=== PATIENT | male | born 1945 | race African-American/Black ===

== ENCOUNTER 2017-05-05 15:41 | Inpatient (IN) | payer MEDICARE, OTHER ==
[~2017-05-05] VITALS: Ht 177.8 cm; Wt 81.7 kg
[~2017-05-05 15:41] MED LIST: ACETAMINOPHEN325 M1 ORAL; ALLOPURINOL100 M1 ORAL; AMBIEN5 MG ORAL; AMOX TR-K CLV1 EAC2 ORAL; ASPIRIN81 MG ORAL; CLONAZEPAM2 MG PO; COLACE100 MG ORAL; CYCLOBENZAPRINE10 MG ORAL; FLONASE1 SPRAYS NASAL; HEPARIN SO5000 UNIT2 SUBQ; HYDROCODON-ACE1 EA16; IBUPROFEN800 M1 ORAL; KLONOPIN1 MG ORAL; LISINOPRIL10 MG ORAL; LORATADINE10 M2; METHADONE HCL10 MG ORAL; METHADONE HCL10 MG PO; PHENERGAN6.25 MG/5; SPIRIVA18 MCG INH; TAMSULOSIN HCL0.4 MG ORAL; TRAMADOL HCL50 MG; VITAMIN D250000 UNI1 ORAL
[2017-05-05 17:00] VITALS: BP 116/61
[2017-05-05 17:11] LABS: BASOPHILS % (AUTO) 1.1 % (0.0-2.0); EOSINOPHILS % (AUTO) 2.7 % (0.0-3.0); HEMATOCRIT 34.3 % (42.0-52.0); HEMOGLOBIN 10.9 G/DL (14.2-18.0); LYMPHOCYTES % (AUTO) 22.1 % (20.0-45.0); MEAN CORPUSCULAR VOLUME 95 FL (80-99); MONOCYTES % (AUTO) 7.4 % (1.0-10.0); NEUTROPHILS % (AUTO) 66.7 % (45.0-75.0); PLATELET COUNT 122 K/UL (150-450); RED BLOOD COUNT 3.63 M/UL (4.70-6.10); RED CELL DISTRIBUTION WIDTH 16.1 % (11.6-14.8); WHITE BLOOD COUNT 8.6 K/UL (4.8-10.8)
[2017-05-05 17:31] LABS: ALANINE AMINOTRANSFERASE 16 U/L (12-78); ALBUMIN 3.2 G/DL (3.4-5.0); ALBUMIN/GLOBULIN RATIO 0.7 (1.0-2.7); ALKALINE PHOSPHATASE 73 U/L (46-116); ANION GAP 8 mmol/L (5-15); ASPARTATE AMINO TRANSFERASE 12 U/L (15-37); BILIRUBIN,TOTAL 0.6 MG/DL (0.2-1.0); BLOOD UREA NITROGEN 74 mg/dL (7-18); CALCIUM 8.6 MG/DL (8.5-10.1); CARBON DIOXIDE 30 MMOL/L (21-32); CHLORIDE 96 MMOL/L (98-107); CREATININE 17.4 MG/DL (0.55-1.30); SODIUM 135 MMOL/L (136-145)
[2017-05-05] MEDS ORDERED: PRO-AMATINE5 M1 ORAL (17:51)
[2017-05-05] MEDS ORDERED: KLONOPIN1 MG ORAL (17:51)
[2017-05-05 18:00] VITALS: BP 133/51
[2017-05-05] MEDS ORDERED: Albuterol ud Inhalation HHN ONE (18:15)
[2017-05-05] MEDS ORDERED: Sodium Polystyrene Sulfonate 15gm Powder ORAL ONE (18:15)
[2017-05-05] MEDS ORDERED: Miralax 17gm pkt ORAL PRN (18:45)
[2017-05-05] MEDS ORDERED: Albuterol/Ipratropium 3ml neb HHN PRN (18:45)
[2017-05-05] MEDS ORDERED: Lidocaine 1% Plain 30 ml INJ ONE (18:49)
[2017-05-05] MEDS ORDERED: Lidocaine 1% 10mg/ml/Epi 0.005mg/ml 30ml vial INJ ONE (18:52)
[2017-05-05] MEDS ORDERED: Sodium Bicarbonate 50ml Carp IV ONE (19:00)
--- NOTE | 2017-05-05 19:20 | Operative Note - PDOC ---
Operative Note Operative Note Date of Operation/Procedure: May 05, 2017 Pre-op Diagnosis: hyperkalemia, need urgent dialysis Procedure: right femoral HD catheter insertion Post-op Diagnosis: same as pre-op Surgeon: luís Anesthesiologist: n/a Anesthesia: local Specimen: none Complications: none Condition: stable Fluids: n/a Estimated Blood Loss: minimal Drains: none Implant(s) used?: Yes - HD catheter Indications for Procedure 72 year old male with renal failure on dialysis. Has been receiving HD through left arm AV graft for some time now but unfortunately graft seems to have malfunctioned and was unable to receive dialysis. Was sent to ED from dialysis center for evaluation. Noted to have hyperkalemia and requiring urgent HD. Surgery called for HD catheter placement as patient had no other access and graft salvage not available at this time. Risks, benefits, and alternatives discussed with patient in detail at bedside. Patient consented to procedure. Description of Procedure The patient was lying in the supine position. All persons involved were shielded with hairnets, facemasks and sterile gowns. With sterile-gloved hands the right femoral area was thoroughly sponged with chlorhexidine and allowed to dry. The area was draped with the large disposable sterile field provided in the kit. The skin and subcutaneous tissues superficial to the right femoral vein was anesthetized with 5 mL of 1% lidocaine. The femoral artery was palpated and avoided. A finder needle was advanced at a 45-degree angle toward the inguinal ligament until the syringe was seen to fill with blood. The needle was then held in place while the guide wire was advanced. The needle was then removed. A skin dilator was advanced over the guidewire and removed, then the HD catheter was advanced over the guide wire into proper position. The guide wire was removed and discarded. The ports were aspirated which showed good blood return indicating proper position into the vein and then carefully flushed with normal saline. The catheter was stabilized and sutured to the skin with 2-0 silk at 2 anchor ports. A sterile bio-occlusive dressing was placed over the catheter, including the insertion site. The patient tolerated the procedure well. João Leo May 05, 2017 19:20
[2017-05-05 19:37] LABS: ANION GAP 9 mmol/L (5-15); BLOOD UREA NITROGEN 75 mg/dL (7-18); CALCIUM 8.2 MG/DL (8.5-10.1); CARBON DIOXIDE 30 MMOL/L (21-32); CHLORIDE 97 MMOL/L (98-107); CREATININE 17.6 MG/DL (0.55-1.30); SODIUM 136 MMOL/L (136-145)
[2017-05-05 19:47] LABS: POTASSIUM 7.4 MMOL/L (3.5-5.1)
[2017-05-05] MEDS: Heparin 5000 units/ml inj SUBQ SCH (19:49)
[2017-05-05 20:00] VITALS: BP 112/64
--- NOTE | 2017-05-05 21:26 | Emergency Room Report ---
History of Present Illness General Chief Complaint: General Complaint Source: Patient, Medical Record Present Illness HPI Patient presents emergency department today complaining of missing dialysis. Patient has a history renal fair and is currently on dialysis. Patient had a Anjum catheter for which she was receiving dialysis. About a week ago the Anjum catheter was discontinued. Patient had AV fistula was created. Unfortunately the AV fistula has not been working for over a week. Therefore patient has not received dialysis patient came in for further evaluation. Patient denies any chest pain or shortness breath. Denies any nausea vomiting diarrhea chills symptoms noted to be moderate as patient is fairly weak.No other modifying factors. No other associated signs and symptoms. No other complaints were noted. Allergies: Coded Allergies: PENICILLINS (Verified Allergy, Unknown, 05/05/17) Patient History Past Medical History: CAD, renal disease, dialysis Past Surgical History: other - left AV fistula Social History: Denies: smoking, alcohol use, drug use Reviewed Nursing Documentation: PMH: Agreed, PSxH: Agreed Nursing Documentation-PMH Past Medical History: No History, Except For Hx Cardiac Problems: Yes Hx Gastrointestinal Problems: No Hx Dialysis: Yes - T, TH, Sat Hx Neurological Problems: Yes Hx Seizures: Yes Hx Weakness: Yes Review of Systems All Other Systems: negative except mentioned in HPI Physical Exam Vital Signs Date Time Temp Pulse Resp B/P (MAP) Pulse Ox O2 Delivery O2 Flow Rate FiO2 05/05/17 15:57 98.2 86 18 110/59 96 Room Air 98.2 05/05/17 20:18 21 Sp02 EP Interpretation: reviewed, normal General Appearance: alert, mild distress Head: normocephalic, atraumatic Eyes: bilateral eye normal inspection ENT: normal ENT inspection, hearing grossly normal, normal voice Neck: normal inspection, full range of motion, supple, no bony tend Respiratory: normal inspection, lungs clear, normal breath sounds, no respiratory distress, no retraction, no wheezing Cardiovascular #1: regular rate, rhythm, no edema Gastrointestinal: normal inspection, normal bowel sounds, non tender, soft, no guarding, no hernia Genitourinary: no CVA tenderness Musculoskeletal: normal inspection, back normal, normal range of motion, other - left AV fistula intact but no thrill Neurologic: normal inspection, alert, responsive, speech normal Psychiatric: normal inspection, judgement/insight normal, mood/affect normal Skin: normal inspection, normal color, no rash Procedures Critical Care Time Critical Care Time Patient had a critical medical condition which untreated could potentially result in life or limb threatening injury. Total critical care time excluding procedures was approximately 45 minutes. Medical Decision Making Diagnostic Impression: Primary Impression: Hyperkalemia Additional Impression: Renal failure ER Course Patient presents emergency department today with with the inability getting dialysis. Differential considerations include acute electrolyte abnormality, fluid overload, hyperkalemia just name a few.Given the severity of the patient' s presentation I felt this is a highly complex patient. This patient required extensive workup. Patient's EKG shows prominent T waves this is concerning for hyperkalemia. Patient's blood work did show a significant elevated potassium 8. Patient was given Kayexalate insulin and bicarbonate as well as nebulizer treatment. Patient was sent for emergent dialysis. Case was discussed with Dr. Falcon. Dr. Ramos was also notified. Anjum catheter was placed by general surgery. Patient will receive dialysis later today. Patient will be admitted to [facility] for further treatment. Labs Test 05/05/17 16:45 05/05/17 19:01 White Blood Count 8.6 K/UL (4.8-10.8) Red Blood Count 3.63 M/UL (4.70-6.10) Hemoglobin 10.9 G/DL (14.2-18.0) Hematocrit 34.3 % (42.0-52.0) Mean Corpuscular Volume 95 FL (80-99) Mean Corpuscular Hemoglobin 30.1 PG (27.0-31.0) Mean Corpuscular Hemoglobin Concent 31.8 G/DL (32.0-36.0) Red Cell Distribution Width 16.1 % (11.6-14.8) Platelet Count 122 K/UL (150-450) Mean Platelet Volume 9.0 FL (6.5-10.1) Neutrophils (%) (Auto) 66.7 % (45.0-75.0) Lymphocytes (%) (Auto) 22.1 % (20.0-45.0) Monocytes (%) (Auto) 7.4 % (1.0-10.0) Eosinophils (%) (Auto) 2.7 % (0.0-3.0) Basophils (%) (Auto) 1.1 % (0.0-2.0) Prothrombin Time 10.9 SEC (9.30-11.50) Prothromb Time International Ratio 1.0 (0.9-1.1) Activated Partial Thromboplast Time 31 SEC (23-33) Sodium Level 135 MMOL/L (136-145) 136 MMOL/L (136-145) Potassium Level 8.0 MMOL/L (3.5-5.1) 7.4 MMOL/L (3.5-5.1) Chloride Level 96 MMOL/L (98-107) 97 MMOL/L (98-107) Carbon Dioxide Level 30 MMOL/L (21-32) 30 MMOL/L (21-32) Anion Gap 8 mmol/L (5-15) 9 mmol/L (5-15) Blood Urea Nitrogen 74 mg/dL (7-18) 75 mg/dL (7-18) Creatinine 17.4 MG/DL (0.55-1.30) 17.6 MG/DL (0.55-1.30) Estimat Glomerular Filtration Rate 3.3 mL/min (>60) 3.3 mL/min (>60) Glucose Level 62 MG/DL (74-106) 60 MG/DL (74-106) Calcium Level 8.6 MG/DL (8.5-10.1) 8.2 MG/DL (8.5-10.1) Total Bilirubin 0.6 MG/DL (0.2-1.0) Aspartate Amino Transf (AST/SGOT) 12 U/L (15-37) Alanine Aminotransferase (ALT/SGPT) 16 U/L (12-78) Alkaline Phosphatase 73 U/L (46-116) Total Protein 7.8 G/DL (6.4-8.2) Albumin 3.2 G/DL (3.4-5.0) Globulin 4.6 g/dL Albumin/Globulin Ratio 0.7 (1.0-2.7) Troponin I 0.010 ng/mL (0.000-0.056) EKG Diagnostic Results Rate: normal Rhythm: NSR ST Segments: other - T wave prominence Rhythm Strip Diag. Results EP Interpretation: yes Rate: 70s Rhythm: NSR, no PVC's, no ectopy Last Vital Signs Date Time Temp Pulse Resp B/P (MAP) Pulse Ox O2 Delivery O2 Flow Rate FiO2 05/05/17 20:18 77 14 95 Room Air 21 05/05/17 18:00 98.9 133/51 98.9 Status: improved Disposition: ADMITTED INPATIENT Condition: Serious Referrals: [facility],REFERRING (PCP) CARIN SIGALA M.D. May 05, 2017 21:26
[2017-05-05 21:45] VITALS: BP 125/64
[2017-05-05 21:48] VITALS: BP 120/74
[2017-05-05 22:00] VITALS: BP 124/65
[2017-05-05] MEDS ORDERED: CALCIUM ACETAT667 MG PO (23:23)
[2017-05-06] VITALS (7 sets, daily range): BP systolic 89–154; BP diastolic 49–88
[2017-05-06 04:14] LABS: EOSINOPHILS % (AUTO) 2.7 % (0.0-3.0); HEMATOCRIT 29.3 % (42.0-52.0); HEMOGLOBIN 9.5 G/DL (14.2-18.0); LYMPHOCYTES % (AUTO) 26.4 % (20.0-45.0); MEAN CORPUSCULAR VOLUME 95 FL (80-99); MONOCYTES % (AUTO) 6.9 % (1.0-10.0); PLATELET COUNT 107 K/UL (150-450); RED BLOOD COUNT 3.08 M/UL (4.70-6.10); RED CELL DISTRIBUTION WIDTH 16.2 % (11.6-14.8); WHITE BLOOD COUNT 6.9 K/UL (4.8-10.8)
[2017-05-06 05:13] LABS: ALBUMIN 2.8 G/DL (3.4-5.0); ANION GAP 9 mmol/L (5-15); BLOOD UREA NITROGEN 59 mg/dL (7-18); CALCIUM 7.5 MG/DL (8.5-10.1); CARBON DIOXIDE 33 MMOL/L (21-32); CHLORIDE 98 MMOL/L (98-107); CREATININE 14.1 MG/DL (0.55-1.30); PHOSPHORUS 5.8 MG/DL (2.5-4.9); POTASSIUM 5.4 MMOL/L (3.5-5.1); SODIUM 140 MMOL/L (136-145)
--- NOTE | 2017-05-06 07:24 | History and Physical ---
History of Present Illness General Reason for Hospitalization: General Complaint Present Illness HPI 72 y/old male with MH of ESRSD, on HD, seizure disorder, hx of IVDU, on maintenance methadone therapy, presented with report of missing dialysis. Patient had a Anjum catheter , and about a week ago the Anjum catheter was discontinued. Patient had AV fistula which was earlier created. However, AV fistula had not been working for over a week. Patient came in for further evaluation. Patient denied any chest pain or shortness breath. Denied any nausea vomiting diarrhea chills Upon evaluation in ED stable VS K-8.0 ECG with peaked T waves troponin negative BUN-74 and creatinine-17 c/w known hx of ESRD hyperkalemia was treated and patient was admitted for further management Allergies: Coded Allergies: PENICILLINS (Verified Allergy, Unknown, 05/05/17) Medication History Scheduled Aspirin* (Aspirin*), 81 MG ORAL DAILY, (Reported) Clonazepam (Clonazepam), 2 MG PO BEDTIME, (Reported) Methadone Hcl* (Methadone*), 55 MG PO DAILY Methadone Hcl* (Methadone*), 65 MG ORAL DAILY Midodrine (Midodrine HCl), 5 MG ORAL DAILY, (Reported) Scheduled PRN Fluticasone Propionate (Fluticasone Propionate), 1 SPR NASAL BID PRN Miscellaneous Medications Calcium Acetate (Calcium Acetate), 667 MG PO, (Reported) Discontinued Medications Acetaminophen* (Acetaminophen 325MG Tablet*), 650 MG ORAL Q4H PRN for fever Discontinued Reason: Pt stopped taking med Allopurinol* (Allopurinol*), 300 MG ORAL DAILY Discontinued Reason: Pt stopped taking med Amoxicillin/Potassium Clav 875-125 Mg Tab* (Amox Tr-K Clv 875-125 Mg Tab*), 875 MG ORAL EVERY 12 HOURS Discontinued Reason: Pt stopped taking med Cyclobenzaprine Hcl* (Flexeril*), 10 MG ORAL TID PRN Discontinued Reason: Pt stopped taking med Docusate Sodium* (Colace*), 100 MG ORAL TWICE A DAY Discontinued Reason: Pt stopped taking med Ergocalciferol (Vitamin D2)* (Vitamin D*), ORAL ONCE A WEEK, (Reported) Discontinued Reason: Pt stopped taking med Heparin Sod (Porcine) (Heparin Sodium*), 5,000 UNITS SUBQ EVERY 12 HOURS Discontinued Reason: Pt stopped taking med Hydrocodone/Acetaminophen 7.5-325* (Hydrocodon-Acetaminoph 7.5-325*), (Reported) Discontinued Reason: Pt stopped taking med Loratadine (Loratadine), (Reported) Discontinued Reason: MD discontinued med Promethazine/Dextromethorphan (Promethazine-Dm Syrup), (Reported) Discontinued Reason: Pt stopped taking med Tamsulosin Hcl (Tamsulosin Hcl*), 0.4 MG ORAL BEDTIME, (Reported) Discontinued Reason: Pt stopped taking med Tiotropium Waller* (Spiriva*), 1 PUFF INH DAILY, (Reported) Discontinued Reason: Pt stopped taking med Tramadol Hcl* (Ultram*), (Reported) Discontinued Reason: Pt stopped taking med Zolpidem Tartrate* (Ambien*), 10 MG ORAL HSPRN PRN for Insomnia Discontinued Reason: Pt stopped taking med Patient History Healthcare decision maker Resuscitation status Full Code Advanced Directive on File Past Medical/Surgical History Past Medical/Surgical History: (1) Renal failure (2) Anemia (3) Methadone maintenance therapy patient (4) History of intravenous drug use in remission (5) Thrombocythemia (6) Acute kidney injury (7) Hypercapnia Review of Systems Constitutional: Reports: weakness Eye: Reports: no symptoms ENT: Reports: no symptoms Respiratory: Reports: no symptoms Cardiovascular: Reports: no symptoms Gastrointestinal: Reports: no symptoms Genitourinary: Reports: see HPI Musculoskeletal: Reports: no symptoms Skin: Reports: no symptoms Psychiatric: Reports: no symptoms Neurological: Reports: no symptoms Endocrine: Reports: no symptoms Hematologic/Lymphatic: Reports: no symptoms Physical Exam General Appearance: no apparent distress, alert Lines, tubes and drains: peripheral HEENT: normocephalic, atraumatic, anicteric, mucous membranes moist Neck: supple Respiratory/Chest: lungs clear, no respiratory distress, no accessory muscle use Cardiovascular/Chest: normal rate, regular rhythm, no JVD, other - LUE AV fistula no thrill/bruit; R femoral nontunneled HD catheter Abdomen: normal bowel sounds, non tender, soft Extremities: non-tender, no calf tenderness Skin Exam: warm/dry Neurologic: no motor/sensory deficits, alert, oriented x 3, responsive Musculoskeletal: normal muscle bulk Last 24 Hour Vital Signs Date Time Temp Pulse Resp B/P (MAP) Pulse Ox O2 Delivery O2 Flow Rate FiO2 05/06/17 04:00 98.5 73 20 144/86 95 Room Air 98.5 05/06/17 04:00 79 05/06/17 01:10 98.0 88 20 100/63 Room Air 98.0 05/06/17 01:10 Room Air 05/06/17 00:00 97.5 83 20 101/58 94 Room Air 97.5 05/06/17 00:00 74 05/05/17 22:42 78 05/05/17 22:00 Room Air 05/05/17 22:00 97.8 76 20 124/65 Room Air 97.8 05/05/17 21:48 97.7 81 20 120/74 94 Room Air 97.7 05/05/17 21:45 81 19 125/64 97 Room Air 05/05/17 21:45 98.9 81 19 125/64 97 Room Air 21 98.9 05/05/17 20:36 75 14 99 Room Air 21 05/05/17 20:18 77 14 95 Room Air 21 05/05/17 20:18 77 14 Room Air 21 05/05/17 20:18 21 05/05/17 20:00 81 12 112/64 96 Room Air 05/05/17 18:00 98.9 80 14 133/51 95 Room Air 98.9 05/05/17 17:00 98.9 85 14 116/61 95 Room Air 98.9 05/05/17 15:57 98.2 86 18 110/59 96 Room Air 98.2 Intake and Output 05/05/17 05/06/17 19:00 07:00 Intake Total 236 ml Output Total 2000 ml Balance -1764 ml Intake Oral 236 ml Output Hemodialysis UF 2000 ml Laboratory Tests Test 05/05/17 16:45 05/05/17 19:01 05/06/17 03:10 White Blood Count 8.6 K/UL (4.8-10.8) 6.9 K/UL (4.8-10.8) Red Blood Count 3.63 M/UL (4.70-6.10) L 3.08 M/UL (4.70-6.10) L Hemoglobin 10.9 G/DL (14.2-18.0) L 9.5 G/DL (14.2-18.0) L Hematocrit 34.3 % (42.0-52.0) L 29.3 % (42.0-52.0) L Mean Corpuscular Volume 95 FL (80-99) 95 FL (80-99) Mean Corpuscular Hemoglobin 30.1 PG (27.0-31.0) 30.7 PG (27.0-31.0) Mean Corpuscular Hemoglobin Concent 31.8 G/DL (32.0-36.0) L 32.3 G/DL (32.0-36.0) Red Cell Distribution Width 16.1 % (11.6-14.8) H 16.2 % (11.6-14.8) H Platelet Count 122 K/UL (150-450) L 107 K/UL (150-450) L Mean Platelet Volume 9.0 FL (6.5-10.1) 7.6 FL (6.5-10.1) Neutrophils (%) (Auto) 66.7 % (45.0-75.0) 63.0 % (45.0-75.0) Lymphocytes (%) (Auto) 22.1 % (20.0-45.0) 26.4 % (20.0-45.0) Monocytes (%) (Auto) 7.4 % (1.0-10.0) 6.9 % (1.0-10.0) Eosinophils (%) (Auto) 2.7 % (0.0-3.0) 2.7 % (0.0-3.0) Basophils (%) (Auto) 1.1 % (0.0-2.0) 1.0 % (0.0-2.0) Prothrombin Time 10.9 SEC (9.30-11.50) Prothromb Time International Ratio 1.0 (0.9-1.1) Activated Partial Thromboplast Time 31 SEC (23-33) Sodium Level 135 MMOL/L (136-145) L 136 MMOL/L (136-145) 140 MMOL/L (136-145) Potassium Level 8.0 MMOL/L (3.5-5.1) *H 7.4 MMOL/L (3.5-5.1) *H 5.4 MMOL/L (3.5-5.1) H Chloride Level 96 MMOL/L (98-107) L 97 MMOL/L (98-107) L 98 MMOL/L (98-107) Carbon Dioxide Level 30 MMOL/L (21-32) 30 MMOL/L (21-32) 33 MMOL/L (21-32) H Anion Gap 8 mmol/L (5-15) 9 mmol/L (5-15) 9 mmol/L (5-15) Blood Urea Nitrogen 74 mg/dL (7-18) H 75 mg/dL (7-18) H 59 mg/dL (7-18) H Creatinine 17.4 MG/DL (0.55-1.30) H 17.6 MG/DL (0.55-1.30) H 14.1 MG/DL (0.55-1.30) H Estimat Glomerular Filtration Rate 3.3 mL/min (>60) 3.3 mL/min (>60) 4.2 mL/min (>60) Glucose Level 62 MG/DL (74-106) L 60 MG/DL (74-106) L 72 MG/DL (74-106) L Calcium Level 8.6 MG/DL (8.5-10.1) 8.2 MG/DL (8.5-10.1) L 7.5 MG/DL (8.5-10.1) L Total Bilirubin 0.6 MG/DL (0.2-1.0) Aspartate Amino Transf (AST/SGOT) 12 U/L (15-37) L Alanine Aminotransferase (ALT/SGPT) 16 U/L (12-78) Alkaline Phosphatase 73 U/L (46-116) Total Protein 7.8 G/DL (6.4-8.2) Albumin 3.2 G/DL (3.4-5.0) L 2.8 G/DL (3.4-5.0) L Globulin 4.6 g/dL Albumin/Globulin Ratio 0.7 (1.0-2.7) L Troponin I 0.010 ng/mL (0.000-0.056) 0.034 ng/mL (0.000-0.056) Phosphorus Level 5.8 MG/DL (2.5-4.9) H Height (Feet): 5 Height (Inches): 10.00 Weight (Pounds): 190 Medications Current Medications Medications (Trade) Dose Ordered Sig/Alondra Route PRN Reason Start Time Stop Time Status Last Admin Dose Admin Acetaminophen (Tylenol) 650 mg Q4H PRN ORAL Fever 05/05/17 18:45 06/04/17 18:44 Albuterol/ Ipratropium (Albuterol/ Ipratropium) 3 ml EVERY 4 HOURS PRN HHN Shortness of Breath 05/05/17 18:45 05/10/17 18:44 Dextrose (Dextrose 50%) STAT PRN IV Hypoglycemia 05/05/17 18:45 06/04/17 18:44 Heparin Sodium (Porcine) (Heparin 5000 units/ml) 5,000 units EVERY 12 HOURS SUBQ 05/05/17 21:00 06/04/17 20:59 05/05/17 19:49 Methadone HCl (Methadone HCl) 55 mg DAILY ORAL 05/06/17 09:00 05/13/17 08:59 UNV Ondansetron HCl (Zofran) 4 mg Q6H PRN IVP Nausea & Vomiting 05/05/17 18:45 06/04/17 18:44 Polyethylene Glycol (Miralax) 17 gm DAILYPRN PRN ORAL Constipation 05/05/17 18:45 06/04/17 18:44 Temazepam (Restoril) 15 mg HSPRN PRN ORAL Insomnia 05/05/17 18:45 05/12/17 18:44 Assessment/Plan Assessment/Plan ASSESSMENT Acute severe hyperkalemia missed HD ESRD, ON HD hypotension PLAN OF CARE [facility] s/p insertion of HD catheter by surgeon- temporary R femoral s/p emergent HD K-5.5, additional Kayexalate this am nephro follows discussed with nephro keep till Monday for declotting of AV fistula by IR monitor renal parameters, correct lytes as needed O2 pulm toilet prn ECHO troponin x 2 negative Bowel regimen a/emetic prn DVT prophylaxis case discussed and evaluated by supervising physician Keyur Francisco)Jane NP May 06, 2017 07:24
[2017-05-06] MEDS: Heparin 5000 units/ml inj SUBQ SCH ×3 (09:00→21:00)
--- NOTE | 2017-05-06 12:01 | Consultation ---
Consult Note Consult Note asked to eval for HD management to ER last night missed HD due to clotted graft had K of 8 a right femoral cath was put in place [facility] Assessment/Plan Acute severe hyperkalemia missed HD ESRD, ON HD Plan: monitor lab vascular surgical eval per orders JORGE LEVI May 06, 2017 12:01
--- NOTE | 2017-05-06 12:11 | Consultation ---
History of Present Illness General Date patient seen: May 05, 2017 Chief Complaint: General Complaint Reason for Consultation: hyperk, urgent dialysis Present Illness HPI late entry for consultation seen on 05/05/2017 in PM. 72 year old male with history of renal failure on dialysis. Had prior left upper arm AV graft that was functional and being used. unfortunately graft clotted and had not received dialysis as scheduled. noted to have potassium of 8 and sent to ED for urgent evaluation. Surgery called for urgent HD catheter insertion so that patient can be dialyzed sharon. otherwise patient well and comfortable. Allergies: Coded Allergies: PENICILLINS (Verified Allergy, Unknown, 05/05/17) Medication History Scheduled Aspirin* (Aspirin*), 81 MG ORAL DAILY, (Reported) Clonazepam (Clonazepam), 2 MG PO BEDTIME, (Reported) Methadone Hcl* (Methadone*), 55 MG PO DAILY Methadone Hcl* (Methadone*), 65 MG ORAL DAILY Midodrine (Midodrine HCl), 5 MG ORAL DAILY, (Reported) Scheduled PRN Fluticasone Propionate (Fluticasone Propionate), 1 SPR NASAL BID PRN Miscellaneous Medications Calcium Acetate (Calcium Acetate), 667 MG PO, (Reported) Discontinued Medications Acetaminophen* (Acetaminophen 325MG Tablet*), 650 MG ORAL Q4H PRN for fever Discontinued Reason: Pt stopped taking med Allopurinol* (Allopurinol*), 300 MG ORAL DAILY Discontinued Reason: Pt stopped taking med Amoxicillin/Potassium Clav 875-125 Mg Tab* (Amox Tr-K Clv 875-125 Mg Tab*), 875 MG ORAL EVERY 12 HOURS Discontinued Reason: Pt stopped taking med Cyclobenzaprine Hcl* (Flexeril*), 10 MG ORAL TID PRN Discontinued Reason: Pt stopped taking med Docusate Sodium* (Colace*), 100 MG ORAL TWICE A DAY Discontinued Reason: Pt stopped taking med Ergocalciferol (Vitamin D2)* (Vitamin D*), ORAL ONCE A WEEK, (Reported) Discontinued Reason: Pt stopped taking med Heparin Sod (Porcine) (Heparin Sodium*), 5,000 UNITS SUBQ EVERY 12 HOURS Discontinued Reason: Pt stopped taking med Hydrocodone/Acetaminophen 7.5-325* (Hydrocodon-Acetaminoph 7.5-325*), (Reported) Discontinued Reason: Pt stopped taking med Loratadine (Loratadine), (Reported) Discontinued Reason: MD discontinued med Promethazine/Dextromethorphan (Promethazine-Dm Syrup), (Reported) Discontinued Reason: Pt stopped taking med Tamsulosin Hcl (Tamsulosin Hcl*), 0.4 MG ORAL BEDTIME, (Reported) Discontinued Reason: Pt stopped taking med Tiotropium [place]* (Spiriva*), 1 PUFF INH DAILY, (Reported) Discontinued Reason: Pt stopped taking med Tramadol Hcl* (Ultram*), (Reported) Discontinued Reason: Pt stopped taking med Zolpidem Tartrate* (Ambien*), 10 MG ORAL HSPRN PRN for Insomnia Discontinued Reason: Pt stopped taking med Patient History History Provided By: Patient, Medical Record, PMD Healthcare decision maker Resuscitation status Full Code Advanced Directive on File Past Medical/Surgical History Past Medical/Surgical History: (1) Humeral head fracture (2) Acetabular fracture (3) Multiple injuries due to trauma (4) Anemia (5) ATN (acute tubular necrosis) (6) Unable to ambulate (7) Acute on chronic renal failure (8) Hyperkalemia (9) Renal failure (10) Respiratory infection (11) Respiratory distress (12) Hypercapnia (13) Hypoxia (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 (16) Thrombocythemia (17) Acute kidney injury Review of Systems Constitutional: Denies: no symptoms, see HPI, chills, sweats, fever, malaise, weakness, other Eye: Denies: no symptoms, see HPI, eye pain, blurred vision, tearing, double vision, nose pain, nose congestion, acuity changes, discharge, other ENT: Denies: no symptoms, see HPI, ear pain, ear discharge, nose pain, nose congestion, throat pain, throat swelling, mouth pain, hearing loss, nasal discharge, other Respiratory: Denies: no symptoms, see HPI, cough, orthopnea, shortness of breath, stridor, wheezing, [place], sputum, other Cardiovascular: Denies: no symptoms, see HPI, chest pain, edema, palpitations, syncope, PND, other Gastrointestinal: Denies: no symptoms, see HPI, abdominal pain, constipation, diarrhea, nausea, vomiting, melena, hematemesis, other Genitourinary: Denies: no symptoms, see HPI, discharge, dysuria, frequency, hematuria, pain, retention, incontinence, urgency, vag bleed/dc, other Musculoskeletal: Denies: no symptoms, see HPI, back pain, gout, joint pain, joint swelling, muscle pain, muscle stiffness, other Skin: Denies: no symptoms, see HPI, rash, change in color, change in hair/nails , dryness, lesions, other Psychiatric: Denies: no symptoms, see HPI, prior hx, anxiety, depressed feelings, emotional problems, SI, HI, hallucinations, other Neurological: Denies: no symptoms, see HPI, headache, numbness, paresthesia, seizure, tingling, tremors, focal weakness, syncope, dizziness, other Endocrine: Denies: no symptoms, see HPI, excessive sweating, flushing, intolerance to temperature, increased thirst, increased urine, unexplained weight loss, other Hematologic/Lymphatic: Denies: no symptoms, see HPI, anemia, blood clots, easy bleeding, easy bruising, swollen glands, diathesis, other Physical Exam General Appearance: no apparent distress, alert Lines, tubes and drains: dialysis access HEENT: normocephalic, atraumatic, mucous membranes moist Neck: supple, normal inspection Respiratory/Chest: lungs clear, normal breath sounds, no respiratory distress, no accessory muscle use Cardiovascular/Chest: normal peripheral pulses, normal rate Abdomen: normal bowel sounds, non tender, soft, no organomegaly Extremities: normal range of motion Skin Exam: normal pigmentation, warm/dry Neurologic: alert, oriented x 3, responsive Last 24 Hour Vital Signs Date Time Temp Pulse Resp B/P (MAP) Pulse Ox O2 Delivery O2 Flow Rate FiO2 05/06/17 08:00 99.3 76 18 89/54 92 Room Air 99.3 05/06/17 08:00 78 05/06/17 07:05 76 15 Room Air 21 05/06/17 04:00 98.5 73 20 144/86 95 Room Air 98.5 05/06/17 04:00 79 05/06/17 01:10 98.0 88 20 100/63 Room Air 98.0 05/06/17 01:10 Room Air 05/06/17 00:00 97.5 83 20 101/58 94 Room Air 97.5 05/06/17 00:00 74 05/05/17 22:42 78 05/05/17 22:00 Room Air 05/05/17 22:00 97.8 76 20 124/65 Room Air 97.8 05/05/17 21:48 97.7 81 20 120/74 94 Room Air 97.7 05/05/17 21:45 81 19 125/64 97 Room Air 05/05/17 21:45 98.9 81 19 125/64 97 Room Air 21 98.9 05/05/17 20:36 75 14 99 Room Air 21 05/05/17 20:18 77 14 95 Room Air 21 05/05/17 20:18 77 14 Room Air 21 05/05/17 20:18 21 05/05/17 20:00 81 12 112/64 96 Room Air 05/05/17 18:00 98.9 80 14 133/51 95 Room Air 98.9 05/05/17 17:00 98.9 85 14 116/61 95 Room Air 98.9 05/05/17 15:57 98.2 86 18 110/59 96 Room Air 98.2 Intake and Output 05/05/17 05/06/17 19:00 07:00 Intake Total 236 ml Output Total 2000 ml Balance -1764 ml Intake Oral 236 ml Output Hemodialysis UF 2000 ml Laboratory Tests Test 05/05/17 16:45 05/05/17 19:01 05/06/17 03:10 White Blood Count 8.6 K/UL (4.8-10.8) 6.9 K/UL (4.8-10.8) Red Blood Count 3.63 M/UL (4.70-6.10) L 3.08 M/UL (4.70-6.10) L Hemoglobin 10.9 G/DL (14.2-18.0) L 9.5 G/DL (14.2-18.0) L Hematocrit 34.3 % (42.0-52.0) L 29.3 % (42.0-52.0) L Mean Corpuscular Volume 95 FL (80-99) 95 FL (80-99) Mean Corpuscular Hemoglobin 30.1 PG (27.0-31.0) 30.7 PG (27.0-31.0) Mean Corpuscular Hemoglobin Concent 31.8 G/DL (32.0-36.0) L 32.3 G/DL (32.0-36.0) Red Cell Distribution Width 16.1 % (11.6-14.8) H 16.2 % (11.6-14.8) H Platelet Count 122 K/UL (150-450) L 107 K/UL (150-450) L Mean Platelet Volume 9.0 FL (6.5-10.1) 7.6 FL (6.5-10.1) Neutrophils (%) (Auto) 66.7 % (45.0-75.0) 63.0 % (45.0-75.0) Lymphocytes (%) (Auto) 22.1 % (20.0-45.0) 26.4 % (20.0-45.0) Monocytes (%) (Auto) 7.4 % (1.0-10.0) 6.9 % (1.0-10.0) Eosinophils (%) (Auto) 2.7 % (0.0-3.0) 2.7 % (0.0-3.0) Basophils (%) (Auto) 1.1 % (0.0-2.0) 1.0 % (0.0-2.0) Prothrombin Time 10.9 SEC (9.30-11.50) Prothromb Time International Ratio 1.0 (0.9-1.1) Activated Partial Thromboplast Time 31 SEC (23-33) Sodium Level 135 MMOL/L (136-145) L 136 MMOL/L (136-145) 140 MMOL/L (136-145) Potassium Level 8.0 MMOL/L (3.5-5.1) *H 7.4 MMOL/L (3.5-5.1) *H 5.4 MMOL/L (3.5-5.1) H Chloride Level 96 MMOL/L (98-107) L 97 MMOL/L (98-107) L 98 MMOL/L (98-107) Carbon Dioxide Level 30 MMOL/L (21-32) 30 MMOL/L (21-32) 33 MMOL/L (21-32) H Anion Gap 8 mmol/L (5-15) 9 mmol/L (5-15) 9 mmol/L (5-15) Blood Urea Nitrogen 74 mg/dL (7-18) H 75 mg/dL (7-18) H 59 mg/dL (7-18) H Creatinine 17.4 MG/DL (0.55-1.30) H 17.6 MG/DL (0.55-1.30) H 14.1 MG/DL (0.55-1.30) H Estimat Glomerular Filtration Rate 3.3 mL/min (>60) 3.3 mL/min (>60) 4.2 mL/min (>60) Glucose Level 62 MG/DL (74-106) L 60 MG/DL (74-106) L 72 MG/DL (74-106) L Calcium Level 8.6 MG/DL (8.5-10.1) 8.2 MG/DL (8.5-10.1) L 7.5 MG/DL (8.5-10.1) L Total Bilirubin 0.6 MG/DL (0.2-1.0) Aspartate Amino Transf (AST/SGOT) 12 U/L (15-37) L Alanine Aminotransferase (ALT/SGPT) 16 U/L (12-78) Alkaline Phosphatase 73 U/L (46-116) Total Protein 7.8 G/DL (6.4-8.2) Albumin 3.2 G/DL (3.4-5.0) L 2.8 G/DL (3.4-5.0) L Globulin 4.6 g/dL Albumin/Globulin Ratio 0.7 (1.0-2.7) L Troponin I 0.010 ng/mL (0.000-0.056) 0.034 ng/mL (0.000-0.056) Phosphorus Level 5.8 MG/DL (2.5-4.9) H Height (Feet): 5 Height (Inches): 10.00 Weight (Pounds): 190 Medications Current Medications Medications (Trade) Dose Ordered Sig/Alondra Route PRN Reason Start Time Stop Time Status Last Admin Dose Admin Acetaminophen (Tylenol) 650 mg Q4H PRN ORAL Fever 05/05/17 18:45 06/04/17 18:44 Albuterol/ Ipratropium (Albuterol/ Ipratropium) 3 ml EVERY 4 HOURS PRN HHN Shortness of Breath 05/05/17 18:45 05/10/17 18:44 Aspirin (ASA) 81 mg DAILY ORAL 05/07/17 09:00 06/06/17 08:59 Dextrose (Dextrose 50%) STAT PRN IV Hypoglycemia 05/05/17 18:45 06/04/17 18:44 Heparin Sodium (Porcine) (Heparin 5000 units/ml) 5,000 units EVERY 12 HOURS SUBQ 05/05/17 21:00 06/04/17 20:59 05/05/17 19:49 Methadone HCl (Methadone HCl) 65 mg DAILY ORAL 05/06/17 11:00 05/13/17 10:59 05/06/17 11:57 Ondansetron HCl (Zofran) 4 mg Q6H PRN IVP Nausea & Vomiting 05/05/17 18:45 06/04/17 18:44 Polyethylene Glycol (Miralax) 17 gm DAILYPRN PRN ORAL Constipation 05/05/17 18:45 06/04/17 18:44 Sevelamer Carbonate (Renvela) 800 mg THREE TIMES A DAY ORAL 05/06/17 13:00 06/05/17 12:59 UNV Temazepam (Restoril) 15 mg HSPRN PRN ORAL Insomnia 05/05/17 18:45 05/12/17 18:44 Assessment/Plan Problem List: (1) Hyperkalemia Assessment & Plan: 72M with significant hyperkalemia who had malfunctioning left upper arm AV graft and requires urgent HD. -right femoral HD catheter placed at bedside in ED (see procedure note) -okay for HD sharon. -will follow with recs. thank you for this consultation. ICD Codes: E87.5 - Hyperkalemia SNOMED: [id number] Status: stable, not improved João Leo May 06, 2017 12:11
[2017-05-06] MEDS ORDERED: Sodium Polystyrene Sulfonate 15gm Powder ORAL ONE (12:15)
[2017-05-06] MEDS: Docusate 100mg cap ORAL SCH ×2 (12:43→17:57)
[2017-05-06] MEDS ORDERED: Albuterol/Ipratropium 3ml neb HHN PRN (21:00)
[2017-05-06] MEDS ORDERED: Morphine Sulfate 4mg/ml Inj IVP PRN (22:30)
[2017-05-07] VITALS (8 sets, daily range): BP systolic 109–142; BP diastolic 58–76
[2017-05-07] MEDS: Docusate 100mg cap ORAL SCH ×3 (08:37→17:11)
[2017-05-07 08:42] LABS: HEMATOCRIT 29.1 % (42.0-52.0); HEMOGLOBIN 9.3 G/DL (14.2-18.0); LYMPHOCYTES % (AUTO) 21.8 % (20.0-45.0); MEAN CORPUSCULAR VOLUME 95 FL (80-99); NEUTROPHILS % (AUTO) 68.3 % (45.0-75.0); PLATELET COUNT 101 K/UL (150-450); RED BLOOD COUNT 3.06 M/UL (4.70-6.10); RED CELL DISTRIBUTION WIDTH 16.3 % (11.6-14.8); WHITE BLOOD COUNT 8.2 K/UL (4.8-10.8)
[2017-05-07] MEDS: Aspirin Baby 81mg ORAL SCH (08:42)
[2017-05-07] MEDS: Heparin 5000 units/ml inj SUBQ SCH ×2 (08:57→21:00)
[2017-05-07] MEDS ORDERED: Aspirin Baby 81mg ORAL SCH (09:00)
[2017-05-07 09:52] LABS: ALANINE AMINOTRANSFERASE 11 U/L (12-78); ALBUMIN 2.8 G/DL (3.4-5.0); ALBUMIN/GLOBULIN RATIO 0.7 (1.0-2.7); ALKALINE PHOSPHATASE 54 U/L (46-116); ANION GAP 12 mmol/L (5-15); ASPARTATE AMINO TRANSFERASE 12 U/L (15-37); BILIRUBIN,TOTAL 0.5 MG/DL (0.2-1.0); BLOOD UREA NITROGEN 67 mg/dL (7-18); CALCIUM 7.2 MG/DL (8.5-10.1); CARBON DIOXIDE 32 MMOL/L (21-32); CHLORIDE 97 MMOL/L (98-107); CREATININE 16.6 MG/DL (0.55-1.30); GAMMA GLUTAMYL TRANSPEPTIDASE 11 U/L (5-85); PHOSPHORUS 7.2 MG/DL (2.5-4.9); SODIUM 140 MMOL/L (136-145)
--- NOTE | 2017-05-07 09:56 | Pulmonology Progress Note ---
Assessment/Plan Assessment/Plan ASSESSMENT Acute severe hyperkalemia missed HD ESRD, ON HD hypotension PLAN OF CARE MS floor s/p insertion of HD catheter by surgeon- temporary R femoral s/p emergent HD nephro follows K-6.7 this am Kayexalate given per nephro HD today discussed with nephro keep till Monday for declotting of AV fistula by IR monitor renal parameters, correct lytes as needed O2 pulm toilet prn ECHO with pEF 60-65% and RVSP of 25 troponin x 2 negative Bowel regimen a/emetic prn DVT prophylaxis for declotting of AV fistula in am by IR , NPO after MN case discussed and evaluated by supervising physician Subjective Allergies: Coded Allergies: PENICILLINS (Verified Allergy, Unknown, 05/05/17) Subjective denies chest pain, SOB K-5.7 Objective Last 24 Hour Vital Signs Date Time Temp Pulse Resp B/P (MAP) Pulse Ox O2 Delivery O2 Flow Rate FiO2 05/07/17 08:00 95.7 85 19 109/58 91 95.7 05/07/17 04:00 98.4 82 20 110/69 96 Room Air 98.4 05/07/17 00:00 Room Air 05/07/17 00:00 99.0 79 17 124/76 99 99.0 05/06/17 20:00 98.9 78 18 154/88 96 Room Air 98.9 05/06/17 19:23 73 21 Nasal Cannula 2.0 28 05/06/17 16:00 99.2 76 21 100/63 96 Room Air 99.2 05/06/17 16:00 69 05/06/17 12:00 73 05/06/17 12:00 97.8 73 18 94/49 93 Room Air 97.8 Intake and Output 05/06/17 05/07/17 19:00 07:00 Intake Total 470 ml 100 ml Balance 470 ml 100 ml Intake Oral 470 ml 100 ml Objective General Appearance: no apparent distress, alert Lines, tubes and drains: peripheral HEENT: normocephalic, atraumatic, anicteric, mucous membranes moist Neck: supple Respiratory/Chest: lungs clear, no respiratory distress, no accessory muscle use Cardiovascular/Chest: normal rate, regular rhythm, no JVD, other - LUE AV fistula no thrill/bruit; R femoral nontunneled HD catheter Abdomen: normal bowel sounds, non tender, soft Extremities: non-tender, no calf tenderness Skin Exam: warm/dry Neurologic: no motor/sensory deficits, alert, oriented x 3, responsive Musculoskeletal: normal muscle bulk Microbiology Date/Time Source Procedure Growth Status 05/05/17 20:20 Nasal Nares MRSA Culture - Final Staphylococcus Aureus - Mrsa Complete Laboratory Tests 05/07/17 06:10: White Blood Count 8.2, Red Blood Count 3.06L, Hemoglobin 9.3L, Hematocrit 29.1L , Mean Corpuscular Volume 95, Mean Corpuscular Hemoglobin 30.5, Mean Corpuscular Hemoglobin Concent 32.2, Red Cell Distribution Width 16.3H, Platelet Count 101L, Mean Platelet Volume 7.4, Neutrophils (%) (Auto) 68.3, Lymphocytes (%) (Auto) 21.8, Monocytes (%) (Auto) 7.0, Eosinophils (%) (Auto) 2.0, Basophils (%) (Auto) 1.0, Sodium Level [Pending], Potassium Level [Pending] , Chloride Level [Pending], Carbon Dioxide Level [Pending], Blood Urea Nitrogen [Pending], Creatinine [Pending], Estimat Glomerular Filtration Rate [Pending], Glucose Level [Pending], Hemoglobin A1c 6.5H, Uric Acid [Pending], Calcium Level [Pending], Phosphorus Level [Pending], Magnesium Level [Pending], Total Bilirubin [Pending], Gamma Glutamyl Transpeptidase [Pending], Aspartate Amino Transf (AST/SGOT) [Pending], Alanine Aminotransferase (ALT/SGPT) [Pending], Alkaline Phosphatase [Pending], Troponin I [Pending], Pro-B-Type Natriuretic Peptide [Pending], Total Protein [Pending], Albumin [Pending], Globulin [Pending ], Thyroid Stimulating Hormone (TSH) [Pending] Current Medications Medications (Trade) Dose Ordered Sig/Alondra Route PRN Reason Start Time Stop Time Status Last Admin Dose Admin Acetaminophen (Tylenol) 650 mg Q4H PRN ORAL Fever 05/06/17 22:45 06/04/17 18:44 Albuterol/ Ipratropium (Albuterol/ Ipratropium) 3 ml EVERY 4 HOURS PRN HHN Shortness of Breath 05/06/17 21:00 05/10/17 18:44 Aspirin (ASA) 81 mg DAILY ORAL 05/07/17 09:00 06/06/17 08:59 05/07/17 08:42 Dextrose (Dextrose 50%) STAT PRN IV Hypoglycemia 05/07/17 18:45 06/04/17 18:44 Docusate Sodium (Colace) 100 mg THREE TIMES A DAY ORAL 05/07/17 09:00 06/05/17 12:59 05/07/17 08:37 Heparin Sodium (Porcine) (Heparin 5000 units/ml) 5,000 units EVERY 12 HOURS SUBQ 05/06/17 21:00 06/04/17 20:59 Methadone HCl (Methadone HCl) 65 mg DAILY ORAL 05/07/17 09:00 05/13/17 10:59 05/07/17 08:37 Midodrine (Pro-Amatine) 2.5 mg THREE TIMES A DAY ORAL 05/07/17 09:00 06/05/17 12:59 05/07/17 08:37 Morphine Sulfate (Morphine Sulfate) 4 mg EVERY 6 HOURS PRN IVP Severe Pain (Pain Scale 7-10) 05/06/17 22:30 05/13/17 22:29 05/06/17 23:01 Ondansetron HCl (Zofran) 4 mg Q6H PRN IVP Nausea & Vomiting 05/07/17 00:45 06/04/17 18:44 Polyethylene Glycol (Miralax) 17 gm DAILYPRN PRN ORAL Constipation 05/07/17 18:45 06/04/17 18:44 Sevelamer Carbonate (Renvela) 800 mg THREE TIMES A DAY ORAL 05/07/17 09:00 06/05/17 12:59 05/07/17 08:38 Temazepam (Restoril) 15 mg HSPRN PRN ORAL Insomnia 05/07/17 18:45 05/12/17 18:44 Keyur FisherJane emng NP May 07, 2017 09:56
[2017-05-07 09:58] LABS: POTASSIUM 6.7 MMOL/L (3.5-5.1)
--- NOTE | 2017-05-07 10:24 | Nephrology Progress Note ---
Assessment/Plan Problem List: (1) Hyperkalemia (2) ESRD (end stage renal disease) (3) Clotted renal dialysis AV graft Assessment Acute severe hyperkalemia missed HD upon admission ESRD, ON HD Plan HD again today- was done / monitor lab, today K again over 6 vascular surgical eval for left arm graft thrombosis per orders Subjective ROS Limited/Unobtainable: No Constitutional: Reports: malaise Objective Objective Last 24 Hour Vital Signs Date Time Temp Pulse Resp B/P (MAP) Pulse Ox O2 Delivery O2 Flow Rate FiO2 05/07/17 08:00 95.7 85 19 109/58 91 95.7 05/07/17 04:00 98.4 82 20 110/69 96 Room Air 98.4 05/07/17 00:00 Room Air 05/07/17 00:00 99.0 79 17 124/76 99 99.0 05/06/17 20:00 98.9 78 18 154/88 96 Room Air 98.9 05/06/17 19:23 73 21 Nasal Cannula 2.0 28 05/06/17 16:00 99.2 76 21 100/63 96 Room Air 99.2 05/06/17 16:00 69 05/06/17 12:00 73 05/06/17 12:00 97.8 73 18 94/49 93 Room Air 97.8 Intake and Output 05/06/17 05/07/17 19:00 07:00 Intake Total 470 ml 100 ml Balance 470 ml 100 ml Intake Oral 470 ml 100 ml Laboratory Tests 05/07/17 06:10: White Blood Count 8.2, Red Blood Count 3.06L, Hemoglobin 9.3L, Hematocrit 29.1L , Mean Corpuscular Volume 95, Mean Corpuscular Hemoglobin 30.5, Mean Corpuscular Hemoglobin Concent 32.2, Red Cell Distribution Width 16.3H, Platelet Count 101L, Mean Platelet Volume 7.4, Neutrophils (%) (Auto) 68.3, Lymphocytes (%) (Auto) 21.8, Monocytes (%) (Auto) 7.0, Eosinophils (%) (Auto) 2.0, Basophils (%) (Auto) 1.0, Sodium Level 140, Potassium Level 6.7*H, Chloride Level 97L, Carbon Dioxide Level 32, Anion Gap 12, Blood Urea Nitrogen 67H, Creatinine 16.6H, Estimat Glomerular Filtration Rate 3.5, Glucose Level 37* L, Hemoglobin A1c 6.5H, Uric Acid 7.4H, Calcium Level 7.2L, Phosphorus Level 7.2H, Magnesium Level 2.0, Total Bilirubin 0.5, Gamma Glutamyl Transpeptidase 11 , Aspartate Amino Transf (AST/SGOT) 12L, Alanine Aminotransferase (ALT/SGPT) 11L , Alkaline Phosphatase 54, Troponin I 0.010, Pro-B-Type Natriuretic Peptide 4312H, Total Protein 6.8, Albumin 2.8L, Globulin 4.0, Albumin/Globulin Ratio 0.7L, Thyroid Stimulating Hormone (TSH) 5.547H Height (Feet): 5 Height (Inches): 10.00 Weight (Pounds): 181 General Appearance: no apparent distress Cardiovascular: normal rate Respiratory/Chest: decreased breath sounds Abdomen: soft Extremities: other - right groin cath Objective no change JORGE LEVI May 07, 2017 10:24
[2017-05-07] MEDS ORDERED: Sodium Polystyrene Sulfonate 15gm Powder ORAL ONE (11:00)
--- NOTE | 2017-05-07 14:40 | Cardiology Report ---
APPROVED REPORT EXAM: Two-dimensional and M-mode echocardiogram with Doppler and color Doppler. INDICATION LV FUNCTION M-Mode DIMENSIONS IVSd1.5 (0.7-1.1cm)Left Atrium (MM)3.0 (1.6-4.0cm) LVDd4.6 (3.5-5.6cm)Aortic Root3.2 (2.0-3.7cm) PWd1.3 (0.7-1.1cm)Aortic Cusp Exc.2.3 (1.5-2.0cm) IVSs2.3 cm LVDs3.0 (2.5-4.0cm) PWs1.7 cm Normal left ventricular chamber size, systolic function and wall motion. Left ventricular ejection fraction estimated to be 60-65 %. Mild left ventricular hypertrophy by 2-D. No evidence of pericardial effusion All other cardiac chamber sizes are within normal limits. Focal aortic valve sclerosis with adequate cusp excursion. Thickened mitral valve leaflets with normal excursion. Mitral annulus and aortic root calcification. Pulmonic valve not well visualized. Normal tricuspid valve structure. IVC at normal size with physiologic collapse. A color flow and spectral Doppler study was performed and revealed: No aortic regurgitation. Trcace mitral regurgitation. Normal left ventricular diastolic function Trace tricuspid regurgitation. Tricuspid systolic velocities suggests peak right ventricular systolic pressure of 25 mmHg Trace Pulmonic regurgitation present
--- NOTE | 2017-05-07 15:10 | General Surgery Progress Note ---
General Surgery-Progress Note Subjective Procedure Performed right femoral HD catheter insertion Symptoms: improved Additional Comments had HD. labs improved and now requiring HD again. otherwise well and no acute events. Objective Last 24 Hour Vital Signs Date Time Temp Pulse Resp B/P (MAP) Pulse Ox O2 Delivery O2 Flow Rate FiO2 05/07/17 14:23 Room Air 05/07/17 12:00 98.8 68 19 124/66 92 98.8 05/07/17 09:45 76 21 Nasal Cannula 2.0 28 05/07/17 08:00 95.7 85 19 109/58 91 95.7 05/07/17 04:00 98.4 82 20 110/69 96 Room Air 98.4 05/07/17 00:00 Room Air 05/07/17 00:00 99.0 79 17 124/76 99 99.0 05/06/17 20:00 98.9 78 18 154/88 96 Room Air 98.9 05/06/17 19:23 73 21 Nasal Cannula 2.0 28 05/06/17 16:00 99.2 76 21 100/63 96 Room Air 99.2 05/06/17 16:00 69 I&O Intake and Output 05/06/17 05/07/17 19:00 07:00 Intake Total 470 ml 100 ml Balance 470 ml 100 ml Intake Oral 470 ml 100 ml Dressing: dry Wound: clean Cardiovascular: RSR Respiratory: clear Abdomen: soft, flat Extremities: no tenderness, no cyanosis Laboratory Tests Test 05/07/17 06:10 White Blood Count 8.2 K/UL (4.8-10.8) Red Blood Count 3.06 M/UL (4.70-6.10) L Hemoglobin 9.3 G/DL (14.2-18.0) L Hematocrit 29.1 % (42.0-52.0) L Mean Corpuscular Volume 95 FL (80-99) Mean Corpuscular Hemoglobin 30.5 PG (27.0-31.0) Mean Corpuscular Hemoglobin Concent 32.2 G/DL (32.0-36.0) Red Cell Distribution Width 16.3 % (11.6-14.8) H Platelet Count 101 K/UL (150-450) L Mean Platelet Volume 7.4 FL (6.5-10.1) Neutrophils (%) (Auto) 68.3 % (45.0-75.0) Lymphocytes (%) (Auto) 21.8 % (20.0-45.0) Monocytes (%) (Auto) 7.0 % (1.0-10.0) Eosinophils (%) (Auto) 2.0 % (0.0-3.0) Basophils (%) (Auto) 1.0 % (0.0-2.0) Sodium Level 140 MMOL/L (136-145) Potassium Level 6.7 MMOL/L (3.5-5.1) *H Chloride Level 97 MMOL/L (98-107) L Carbon Dioxide Level 32 MMOL/L (21-32) Anion Gap 12 mmol/L (5-15) Blood Urea Nitrogen 67 mg/dL (7-18) H Creatinine 16.6 MG/DL (0.55-1.30) H Estimat Glomerular Filtration Rate 3.5 mL/min (>60) Glucose Level 37 MG/DL (74-106) *L Hemoglobin A1c 6.5 % (4.3-6.0) H Uric Acid 7.4 MG/DL (2.6-7.2) H Calcium Level 7.2 MG/DL (8.5-10.1) L Phosphorus Level 7.2 MG/DL (2.5-4.9) H Magnesium Level 2.0 MG/DL (1.8-2.4) Total Bilirubin 0.5 MG/DL (0.2-1.0) Gamma Glutamyl Transpeptidase 11 U/L (5-85) Aspartate Amino Transf (AST/SGOT) 12 U/L (15-37) L Alanine Aminotransferase (ALT/SGPT) 11 U/L (12-78) L Alkaline Phosphatase 54 U/L (46-116) Troponin I 0.010 ng/mL (0.000-0.056) C-Reactive Protein, Quantitative 3.7 mg/dL (0.00-0.90) H Pro-B-Type Natriuretic Peptide 4312 pg/mL (0-125) H Total Protein 6.8 G/DL (6.4-8.2) Albumin 2.8 G/DL (3.4-5.0) L Globulin 4.0 g/dL Albumin/Globulin Ratio 0.7 (1.0-2.7) L Thyroid Stimulating Hormone (TSH) 5.547 uiU/mL (0.358-3.740) Plan Problems: (1) Hyperkalemia Assessment & Plan: 72M with significant hyperkalemia who had malfunctioning left upper arm AV graft and requires urgent HD. right femoral HD catheter placed at bedside in ED (see procedure note). Had HD after line placement without issues. -HD as needed. -catheter in place and clean. -needs vascular consult to evaluate clotted graft and hopes for salvage. -will follow with recs. thank you for this consultation. João Leo May 07, 2017 15:10
[2017-05-07] MEDS ORDERED: Miralax 17gm pkt ORAL PRN (18:45)
[2017-05-07] MEDS: Dyna-Hex 2% Top Sol 2oz TOPIC SCH (21:54)
[2017-05-08] VITALS (11 sets, daily range): BP systolic 116–166; BP diastolic 66–91
[2017-05-08 08:03] LABS: EOSINOPHILS % (AUTO) 2.6 % (0.0-3.0); HEMATOCRIT 27.5 % (42.0-52.0); LYMPHOCYTES % (AUTO) 18.2 % (20.0-45.0); MEAN CORPUSCULAR VOLUME 94 FL (80-99); MONOCYTES % (AUTO) 6.2 % (1.0-10.0); PLATELET COUNT 102 K/UL (150-450); RED BLOOD COUNT 2.92 M/UL (4.70-6.10); RED CELL DISTRIBUTION WIDTH 15.6 % (11.6-14.8); WHITE BLOOD COUNT 7.6 K/UL (4.8-10.8)
[2017-05-08 08:24] LABS: ALANINE AMINOTRANSFERASE 12 U/L (12-78); ALBUMIN 2.7 G/DL (3.4-5.0); ALBUMIN/GLOBULIN RATIO 0.7 (1.0-2.7); ALKALINE PHOSPHATASE 52 U/L (46-116); ANION GAP 10 mmol/L (5-15); ASPARTATE AMINO TRANSFERASE 13 U/L (15-37); BILIRUBIN,TOTAL 0.5 MG/DL (0.2-1.0); BLOOD UREA NITROGEN 68 mg/dL (7-18); CALCIUM 6.9 MG/DL (8.5-10.1); CARBON DIOXIDE 34 MMOL/L (21-32); CHLORIDE 93 MMOL/L (98-107); CREATININE 17.2 MG/DL (0.55-1.30); SODIUM 137 MMOL/L (136-145)
[2017-05-08] MEDS: Aspirin Baby 81mg ORAL SCH (08:41)
[2017-05-08] MEDS: Docusate 100mg cap ORAL SCH ×3 (08:41→17:45)
[2017-05-08] MEDS: Heparin 5000 units/ml inj SUBQ SCH ×2 (08:42→21:00)
[2017-05-08] MEDS: Sodium Polystyrene Sulfonate 15gm Powder ORAL ONE ×2 (09:00→09:17)
--- NOTE | 2017-05-08 11:06 | Nephrology Progress Note ---
Assessment/Plan Problem List: (1) Hyperkalemia (2) ESRD (end stage renal disease) (3) Clotted renal dialysis AV graft Assessment HAD CATHETER MALFUNCTION AND DIDNT RECEIVE HD YESTERDAY Acute severe hyperkalemia missed HD upon admission ESRD, ON HD Plan HD again today- after thrombectomy Kayexelate for now monitor lab, today K again over 6 vascular surgical eval for left arm graft thrombosis per orders Subjective ROS Limited/Unobtainable: No Constitutional: Reports: malaise Objective Objective Last 24 Hour Vital Signs Date Time Temp Pulse Resp B/P (MAP) Pulse Ox O2 Delivery O2 Flow Rate FiO2 05/08/17 08:00 97.9 89 19 116/71 96 Room Air 97.9 05/08/17 07:55 79 18 Nasal Cannula 2.0 28 05/08/17 04:00 98.0 77 21 126/66 99 Room Air 98.0 05/08/17 00:00 97.8 81 18 145/74 96 Room Air 97.8 05/07/17 21:00 98.1 78 20 142/70 94 Room Air 98.1 05/07/17 19:16 74 21 Nasal Cannula 2.0 28 05/07/17 16:44 Room Air 05/07/17 15:55 98.1 72 19 139/66 92 98.1 05/07/17 15:45 98.3 72 20 139/66 Room Air 98.3 05/07/17 15:30 Room Air 05/07/17 14:23 Room Air 05/07/17 13:30 Room Air 05/07/17 13:30 98.1 72 20 139/58 Room Air 98.1 05/07/17 12:00 98.8 68 19 124/66 92 98.8 Intake and Output 05/07/17 05/08/17 19:00 07:00 Intake Total 60 ml Output Total 1300 ml Balance -1300 ml 60 ml Intake Oral 60 ml Output Hemodialysis UF 1300 ml Laboratory Tests 05/08/17 05:40: White Blood Count 7.6, Red Blood Count 2.92L, Hemoglobin 9.0L, Hematocrit 27.5L , Mean Corpuscular Volume 94, Mean Corpuscular Hemoglobin 30.7, Mean Corpuscular Hemoglobin Concent 32.6, Red Cell Distribution Width 15.6H, Platelet Count 102L, Mean Platelet Volume 7.2, Neutrophils (%) (Auto) 72.0, Lymphocytes (%) (Auto) 18.2L, Monocytes (%) (Auto) 6.2, Eosinophils (%) (Auto) 2.6, Basophils (%) (Auto) 1.0, Sodium Level 137, Potassium Level 6.0*H, Chloride Level 93L, Carbon Dioxide Level 34H, Anion Gap 10, Blood Urea Nitrogen 68H, Creatinine 17.2H, Estimat Glomerular Filtration Rate 3.4, Glucose Level 47L , Calcium Level 6.9L, Phosphorus Level 8.0H, Magnesium Level 1.9, Total Bilirubin 0.5, Aspartate Amino Transf (AST/SGOT) 13L, Alanine Aminotransferase ( ALT/SGPT) 12, Alkaline Phosphatase 52, Total Protein 6.6, Albumin 2.7L, Globulin 3.9, Albumin/Globulin Ratio 0.7L Height (Feet): 5 Height (Inches): 10.00 Weight (Pounds): 183 General Appearance: no apparent distress Objective no change JORGE LEVI May 08, 2017 11:05
[2017-05-08] MEDS ORDERED: Heparin 2000 units/Ns 1000ml 1,000 ML ONE (13:25)
[2017-05-08] MEDS ORDERED: Lidocaine 1% Plain 30 ml INJ ONE (13:25)
[2017-05-08] MEDS ORDERED: Heparin Sod 1000 units/ml 10ml ONE (13:25)
[2017-05-08] MEDS ORDERED: Heparin Sod 1000 units/ml 10ml INJ ONE (14:15)
--- NOTE | 2017-05-08 14:15 | Wound Care Consultation ---
Wound Assessment Wound Assessment : Wound Number: 1 Wound Present on Admission: Yes New Wound: No Status Change of Wound: No Wound Location Body Site Modif: left, upper Wound Location Body Site: arm Wound Type: blister - and scab Ramya Test: Does not Ramya Wound Thickness: Partial Thickness Wound Length: 1.0 Wound Width: 1.0 Percent of Wound Hoyt/Red: 100 Wound Drainage Amount: None Wound Drainage Odor: None/Absent Tissue Surrounding Wound: Intact Wound General Appearance: Reddened Wound Comment #1 left upper arm fluid filled blister and dry scab .- cleanse with normal saline, apply skin barrier film daily , leave open to air. Recommendation -Local wound care as ordered. -keep area clean and dry. -Assess and notify MD for any further change of condition . -Optimize nutrition. JESU BUTLER May 08, 2017 14:15
--- NOTE | 2017-05-08 14:29 | Pre-Procedure Note/Attestation ---
Pre-Procedure Note/Attestation Complete Prior to Procedure Planned Procedure: right Procedure Narrative: IJ vein ivan catheter Indications for Procedure Pre-Operative Diagnosis: ESRD, needs dialysis access Attestation I attest that I discussed the nature of the procedure; its benefits; risks and complications; and alternatives (and the risks and benefits of such alternatives ), prior to the procedure, with the patient (or the patient's legal school admissions representative). I attest that, if there was a reasonable possibility of needing a blood transfusion, the patient (or the patient's legal school admissions representative) was given the [facility] standardized written summary, pursuant to the Abdirah[place] Blood Safety Act ([place] Health and Safety Code # 1645, as amended). I attest that I re-evaluated the patient just prior to the surgery and that there has been no change in the patient's H&P, except as documented below: JAELYN CHARLES M.D. May 08, 2017 14:29
--- NOTE | 2017-05-08 15:23 | Pulmonology Progress Note ---
Assessment/Plan Problems: (1) ESRD (end stage renal disease) (2) Clotted renal dialysis AV graft (3) Anemia (4) Methadone maintenance therapy patient Assessment/Plan HD by nephrology pt will see vascular surgeon as outpatient dc when ok with nephrology and HD arranged check K in am s/p kayexalate. Subjective ROS Limited/Unobtainable: No Constitutional: Reports: no symptoms HEENT: Repors: no symptoms Allergies: Coded Allergies: PENICILLINS (Verified Allergy, Unknown, 05/05/17) Objective Last 24 Hour Vital Signs Date Time Temp Pulse Resp B/P (MAP) Pulse Ox O2 Delivery O2 Flow Rate FiO2 05/08/17 14:25 80 16 151/81 99 Room Air 05/08/17 14:20 81 16 166/90 99 Room Air 05/08/17 14:15 81 16 146/84 97 Room Air 05/08/17 14:10 91 18 156/78 91 Room Air 05/08/17 13:34 84 16 05/08/17 12:00 97.9 79 19 122/70 95 Room Air 97.9 05/08/17 08:00 97.9 89 19 116/71 96 Room Air 97.9 05/08/17 07:55 79 18 Nasal Cannula 2.0 28 05/08/17 04:00 98.0 77 21 126/66 99 Room Air 98.0 05/08/17 00:00 97.8 81 18 145/74 96 Room Air 97.8 05/07/17 21:00 98.1 78 20 142/70 94 Room Air 98.1 05/07/17 19:16 74 21 Nasal Cannula 2.0 28 05/07/17 16:44 Room Air 05/07/17 15:55 98.1 72 19 139/66 92 98.1 05/07/17 15:45 98.3 72 20 139/66 Room Air 98.3 05/07/17 15:30 Room Air Intake and Output 05/07/17 05/08/17 19:00 07:00 Intake Total 60 ml Output Total 1300 ml Balance -1300 ml 60 ml Intake Oral 60 ml Output Hemodialysis UF 1300 ml General Appearance: WD/WN HEENT: normocephalic, atraumatic Respiratory/Chest: chest wall non-tender, lungs clear Cardiovascular: normal peripheral pulses, normal rate Abdomen: soft, non tender, no scars Extremities: no cyanosis Skin: no rash Neurologic/Psychiatric: abnormal gait Microbiology Date/Time Source Procedure Growth Status 05/05/17 20:20 Nasal Nares MRSA Culture - Final Staphylococcus Aureus - Mrsa Complete 05/05/17 20:20 Rectum VRE Culture - Final NO VANCOMYCIN RESISTANT ENTEROCOCCUS ... Complete Laboratory Tests 05/08/17 05:40: White Blood Count 7.6, Red Blood Count 2.92L, Hemoglobin 9.0L, Hematocrit 27.5L , Mean Corpuscular Volume 94, Mean Corpuscular Hemoglobin 30.7, Mean Corpuscular Hemoglobin Concent 32.6, Red Cell Distribution Width 15.6H, Platelet Count 102L, Mean Platelet Volume 7.2, Neutrophils (%) (Auto) 72.0, Lymphocytes (%) (Auto) 18.2L, Monocytes (%) (Auto) 6.2, Eosinophils (%) (Auto) 2.6, Basophils (%) (Auto) 1.0, Sodium Level 137, Potassium Level 6.0*H, Chloride Level 93L, Carbon Dioxide Level 34H, Anion Gap 10, Blood Urea Nitrogen 68H, Creatinine 17.2H, Estimat Glomerular Filtration Rate 3.4, Glucose Level 47L , Calcium Level 6.9L, Phosphorus Level 8.0H, Magnesium Level 1.9, Total Bilirubin 0.5, Aspartate Amino Transf (AST/SGOT) 13L, Alanine Aminotransferase ( ALT/SGPT) 12, Alkaline Phosphatase 52, Total Protein 6.6, Albumin 2.7L, Globulin 3.9, Albumin/Globulin Ratio 0.7L Current Medications Medications (Trade) Dose Ordered Sig/Alondra Route PRN Reason Start Time Stop Time Status Last Admin Dose Admin Acetaminophen (Tylenol) 650 mg Q4H PRN ORAL Fever 05/06/17 22:45 06/04/17 18:44 Albuterol/ Ipratropium (Albuterol/ Ipratropium) 3 ml EVERY 4 HOURS PRN HHN Shortness of Breath 05/06/17 21:00 05/10/17 18:44 Aspirin (ASA) 81 mg DAILY ORAL 05/07/17 09:00 06/06/17 08:59 05/08/17 08:41 Chlorhexidine Gluconate (Patricia-Hex 2%) 1 applic Q24H TOPIC 05/07/17 22:00 06/06/17 21:59 05/07/17 21:54 Dextrose (Dextrose 50%) STAT PRN IV Hypoglycemia 05/07/17 18:45 06/04/17 18:44 Docusate Sodium (Colace) 100 mg THREE TIMES A DAY ORAL 05/07/17 09:00 06/05/17 12:59 05/08/17 13:01 Heparin Sodium (Porcine) (Heparin 5000 units/ml) 5,000 units EVERY 12 HOURS SUBQ 05/06/17 21:00 06/04/17 20:59 Methadone HCl (Methadone HCl) 65 mg DAILY ORAL 05/07/17 09:00 05/13/17 10:59 05/08/17 08:41 Midodrine (Pro-Amatine) 2.5 mg THREE TIMES A DAY ORAL 05/07/17 13:00 06/06/17 12:59 05/07/17 17:11 Morphine Sulfate (Morphine Sulfate) 4 mg EVERY 6 HOURS PRN IVP Severe Pain (Pain Scale 7-10) 05/06/17 22:30 05/13/17 22:29 05/06/17 23:01 Ondansetron HCl (Zofran) 4 mg Q6H PRN IVP Nausea & Vomiting 05/07/17 00:45 06/04/17 18:44 Polyethylene Glycol (Miralax) 17 gm DAILYPRN PRN ORAL Constipation 05/07/17 18:45 06/04/17 18:44 Sevelamer Carbonate (Renvela) 2,400 mg THREE TIMES A DAY ORAL 05/07/17 13:00 06/06/17 12:59 05/07/17 17:11 Temazepam (Restoril) 15 mg HSPRN PRN ORAL Insomnia 05/07/17 18:45 05/12/17 18:44 05/07/17 21:09 YULISA MAYERS May 08, 2017 15:23
--- NOTE | 2017-05-08 15:28 | Diagnostic Imaging Report ---
Indication: Renal failure, hyperkalemia, needs dialysis access, nonfunctioning right groin catheter Technique: Informed consent obtained prior to commencement of the procedure.. Ultrasound confirms patent compressible right internal jugular vein. Total sterile technique, including sterile probe cover and sterile gel, sterile gloves, hand hygiene, hat, mask, sterile gown, large sterile drape, and preparation with 2% chlorhexidine utilized.Local anesthesia with 1% lidocaine. Under real-time ultrasound guidance, puncture right internal jugular vein using 21-gauge micropuncture needle, passage 2008 guidewire, insertion 4 Lao micropuncture introducer, passage 0.035 guidewire, over which was passed serial dilators and then a right transjugular 20 cm 12 Lao triple-lumen temporary dialysis catheter, under fluoroscopic supervision, advanced to 18 cm. Completion stored digital radiograph obtained, demonstrating catheter tip position at high right atrium The patient tolerated the procedure well, without immediate complication. Fluoroscopy time 1.2 minutes Dose Area Product 4 dGycm2 Impression: Successful placement of right jugular temporary dialysis catheter, as described.
[2017-05-08] MEDS: Dyna-Hex 2% Top Sol 2oz TOPIC SCH (21:27)
[2017-05-09] VITALS: BP 128/67
[2017-05-09 04:00] VITALS: BP 136/70
[2017-05-09 08:00] VITALS: BP 101/64
[2017-05-09] MEDS: Heparin 5000 units/ml inj SUBQ SCH (08:48)
[2017-05-09] MEDS: Aspirin Baby 81mg ORAL SCH (08:49)
[2017-05-09] MEDS: Docusate 100mg cap ORAL SCH ×2 (08:49→13:37)
[2017-05-09 12:00] VITALS: BP 124/80
--- NOTE | 2017-05-09 13:10 | Pulmonology Progress Note ---
Assessment/Plan Problems: (1) ESRD (end stage renal disease) (2) Clotted renal dialysis AV graft (3) Anemia (4) Methadone maintenance therapy patient Assessment/Plan HD by nephrology pt will see vascular surgeon as outpatient dc when ok with nephrology and HD arranged dc home today Subjective ROS Limited/Unobtainable: No Interval Events: femoral line was removed by the surgeon Constitutional: Reports: no symptoms HEENT: Repors: no symptoms Respiratory: Reports: no symptoms Allergies: Coded Allergies: PENICILLINS (Verified Allergy, Unknown, 05/05/17) Objective Last 24 Hour Vital Signs Date Time Temp Pulse Resp B/P (MAP) Pulse Ox O2 Delivery O2 Flow Rate FiO2 05/09/17 12:00 98.1 78 18 124/80 99 Room Air 98.1 05/09/17 08:00 97.8 87 20 101/64 91 Room Air 97.8 05/09/17 07:55 86 16 Room Air 21 05/09/17 04:00 98.2 86 20 136/70 91 Room Air 98.2 05/09/17 00:00 98.4 79 20 128/67 90 Room Air 98.4 05/08/17 20:37 Room Air 2.0 21 05/08/17 20:00 98.8 95 21 153/84 90 Room Air 98.8 05/08/17 19:43 65 20 Room Air 21 05/08/17 17:40 Room Air 2.0 28 05/08/17 16:00 97.7 77 20 127/75 92 97.7 05/08/17 14:25 80 16 151/81 99 Room Air 05/08/17 14:20 81 16 166/90 99 Room Air 05/08/17 14:15 81 16 146/84 97 Room Air 05/08/17 14:10 91 18 156/78 91 Room Air 05/08/17 13:34 84 16 Intake and Output 05/08/17 05/09/17 19:00 07:00 Intake Total 120 ml Output Total 2300 ml Balance 120 ml -2300 ml Intake Oral 120 ml Output Urine Total 0 ml Stool Total 0 ml Hemodialysis UF 2300 ml # Voids 1 # Bowel Movements 1 General Appearance: WD/WN HEENT: normocephalic, atraumatic Respiratory/Chest: chest wall non-tender, lungs clear Cardiovascular: normal peripheral pulses, normal rate Abdomen: normal bowel sounds, soft, non tender Genitourinary: normal external genitalia Extremities: no cyanosis Skin: no rash Neurologic/Psychiatric: chain puller II-XII grossly normal Lymphatic: no neck adenopathy Current Medications Medications (Trade) Dose Ordered Sig/Alondra Route PRN Reason Start Time Stop Time Status Last Admin Dose Admin Acetaminophen (Tylenol) 650 mg Q4H PRN ORAL Fever 05/06/17 22:45 06/04/17 18:44 Albuterol/ Ipratropium (Albuterol/ Ipratropium) 3 ml EVERY 4 HOURS PRN HHN Shortness of Breath 05/06/17 21:00 05/10/17 18:44 Aspirin (ASA) 81 mg DAILY ORAL 05/07/17 09:00 06/06/17 08:59 05/09/17 08:49 Chlorhexidine Gluconate (Patricia-Hex 2%) 1 applic Q24H TOPIC 05/07/17 22:00 06/06/17 21:59 05/08/17 21:27 Dextrose (Dextrose 50%) STAT PRN IV Hypoglycemia 05/07/17 18:45 06/04/17 18:44 Docusate Sodium (Colace) 100 mg THREE TIMES A DAY ORAL 05/07/17 09:00 06/05/17 12:59 05/09/17 08:49 Heparin Sodium (Porcine) (Heparin 5000 units/ml) 5,000 units EVERY 12 HOURS SUBQ 05/06/17 21:00 06/04/17 20:59 Methadone HCl (Methadone HCl) 65 mg DAILY ORAL 05/07/17 09:00 05/13/17 10:59 05/09/17 08:50 Midodrine (Pro-Amatine) 2.5 mg THREE TIMES A DAY ORAL 05/07/17 13:00 06/06/17 12:59 05/09/17 08:49 Morphine Sulfate (Morphine Sulfate) 4 mg EVERY 6 HOURS PRN IVP Severe Pain (Pain Scale 7-10) 05/06/17 22:30 05/13/17 22:29 05/06/17 23:01 Ondansetron HCl (Zofran) 4 mg Q6H PRN IVP Nausea & Vomiting 05/07/17 00:45 06/04/17 18:44 05/08/17 15:33 Polyethylene Glycol (Miralax) 17 gm DAILYPRN PRN ORAL Constipation 05/07/17 18:45 06/04/17 18:44 Sevelamer Carbonate (Renvela) 2,400 mg THREE TIMES A DAY ORAL 05/07/17 13:00 06/06/17 12:59 05/09/17 08:49 Temazepam (Restoril) 15 mg HSPRN PRN ORAL Insomnia 05/07/17 18:45 05/12/17 18:44 05/07/17 21:09 YULISA MAYERS May 09, 2017 13:10
--- NOTE | 2017-05-09 13:55 | General Surgery Progress Note ---
General Surgery-Progress Note Subjective Procedure Performed right femoral HD catheter insertion Symptoms: improved Additional Comments doing well. wants to go home. right IG HD line functional and ready for use for some time until graft can be salvaged or new fistula created. patient wants to leave and does not want to attempt graft salvage during this hospitalization now that he has HD cath that he can go home with. Objective Last 24 Hour Vital Signs Date Time Temp Pulse Resp B/P (MAP) Pulse Ox O2 Delivery O2 Flow Rate FiO2 05/09/17 12:00 98.1 78 18 124/80 99 Room Air 98.1 05/09/17 08:00 97.8 87 20 101/64 91 Room Air 97.8 05/09/17 07:55 86 16 Room Air 21 05/09/17 04:00 98.2 86 20 136/70 91 Room Air 98.2 05/09/17 00:00 98.4 79 20 128/67 90 Room Air 98.4 05/08/17 20:37 Room Air 2.0 21 05/08/17 20:00 98.8 95 21 153/84 90 Room Air 98.8 05/08/17 19:43 65 20 Room Air 21 05/08/17 17:40 Room Air 2.0 28 05/08/17 16:00 97.7 77 20 127/75 92 97.7 05/08/17 14:25 80 16 151/81 99 Room Air 05/08/17 14:20 81 16 166/90 99 Room Air 05/08/17 14:15 81 16 146/84 97 Room Air 05/08/17 14:10 91 18 156/78 91 Room Air I&O Intake and Output 05/08/17 05/09/17 19:00 07:00 Intake Total 120 ml Output Total 2300 ml Balance 120 ml -2300 ml Intake Oral 120 ml Output Urine Total 0 ml Stool Total 0 ml Hemodialysis UF 2300 ml # Voids 1 # Bowel Movements 1 Dressing: dry Wound: clean Drains: none Cardiovascular: RSR Respiratory: clear Abdomen: soft, flat Extremities: no cyanosis Plan Problems: (1) Hyperkalemia Assessment & Plan: 72M with significant hyperkalemia who had malfunctioning left upper arm AV graft and requires urgent HD. right femoral HD catheter placed at bedside in ED (see procedure note) for emergent HD given potassium levels and changes. Since has more residential HD cath placed in right IJ which he will go home with until new fistula or graft created. Right femoral catheter removed at bedside okay to d/c home from surgical standpoint follow up with vascular surgeon for new fistula/graft João Leo May 09, 2017 13:55
[2017-05-09 15:02] LABS: BASOPHILS % (AUTO) 1.1 % (0.0-2.0); EOSINOPHILS % (AUTO) 2.3 % (0.0-3.0); HEMATOCRIT 29.2 % (42.0-52.0); HEMOGLOBIN 9.3 G/DL (14.2-18.0); LYMPHOCYTES % (AUTO) 19.5 % (20.0-45.0); MEAN CORPUSCULAR VOLUME 97 FL (80-99); MONOCYTES % (AUTO) 6.1 % (1.0-10.0); PLATELET COUNT 108 K/UL (150-450); RED BLOOD COUNT 3.02 M/UL (4.70-6.10); RED CELL DISTRIBUTION WIDTH 15.8 % (11.6-14.8); WHITE BLOOD COUNT 7.9 K/UL (4.8-10.8)
[2017-05-09 15:06] LABS: ANION GAP 12 mmol/L (5-15); BLOOD UREA NITROGEN 51 mg/dL (7-18); CARBON DIOXIDE 34 MMOL/L (21-32); CHLORIDE 92 MMOL/L (98-107); CREATININE 14.4 MG/DL (0.55-1.30); POTASSIUM 4.2 MMOL/L (3.5-5.1); SODIUM 138 MMOL/L (136-145)
--- NOTE | 2017-05-09 15:45 | Nephrology Progress Note ---
Assessment/Plan Problem List: (1) Hyperkalemia (2) ESRD (end stage renal disease) (3) Clotted renal dialysis AV graft Assessment Received HD 05/08 Acute severe hyperkalemia missed HD upon admission ESRD, ON HD Plan HD in am as OP if discharged monitor lab, vascular surgical eval for left arm graft thrombosis per orders Subjective ROS Limited/Unobtainable: No Interval Events/Complaints seen at 1300 Objective Objective Last 24 Hour Vital Signs Date Time Temp Pulse Resp B/P (MAP) Pulse Ox O2 Delivery O2 Flow Rate FiO2 05/09/17 12:00 98.1 78 18 124/80 99 Room Air 98.1 05/09/17 08:00 97.8 87 20 101/64 91 Room Air 97.8 05/09/17 07:55 86 16 Room Air 21 05/09/17 04:00 98.2 86 20 136/70 91 Room Air 98.2 05/09/17 00:00 98.4 79 20 128/67 90 Room Air 98.4 05/08/17 20:37 Room Air 2.0 21 05/08/17 20:00 98.8 95 21 153/84 90 Room Air 98.8 05/08/17 19:43 65 20 Room Air 21 05/08/17 17:40 Room Air 2.0 28 05/08/17 16:00 97.7 77 20 127/75 92 97.7 Intake and Output 05/08/17 05/09/17 19:00 07:00 Intake Total 120 ml Output Total 2300 ml Balance 120 ml -2300 ml Intake Oral 120 ml Output Urine Total 0 ml Stool Total 0 ml Hemodialysis UF 2300 ml # Voids 1 # Bowel Movements 1 Laboratory Tests 05/09/17 14:20: White Blood Count 7.9, Red Blood Count 3.02L, Hemoglobin 9.3L, Hematocrit 29.2L , Mean Corpuscular Volume 97, Mean Corpuscular Hemoglobin 30.6, Mean Corpuscular Hemoglobin Concent 31.7L, Red Cell Distribution Width 15.8H, Platelet Count 108L, Mean Platelet Volume 7.0, Neutrophils (%) (Auto) 71.0, Lymphocytes (%) (Auto) 19.5L, Monocytes (%) (Auto) 6.1, Eosinophils (%) (Auto) 2.3, Basophils (%) (Auto) 1.1, Sodium Level 138, Potassium Level 4.2, Chloride Level 92L, Carbon Dioxide Level 34H, Anion Gap 12, Blood Urea Nitrogen 51H, Creatinine 14.4H, Estimat Glomerular Filtration Rate 4.1, Glucose Level 52L, Calcium Level 7.0L Height (Feet): 5 Height (Inches): 10.00 Weight (Pounds): 180 General Appearance: no apparent distress Cardiovascular: normal rate Respiratory/Chest: lungs clear Objective no change JORGE LEVI May 09, 2017 15:45
--- NOTE | 2017-05-11 12:37 | Discharge Summary ---
Discharge Summary Hospital Course Date of Admission May 05, 2017 at 18:15 Date of Discharge May 09, 2017 at 14:40 Admitting Diagnosis hyperkalemia HPI Elias Santos is a 72 year old male who was admitted on May 05, 2017 at 18:15 for Hyperkalemia Hospital Course [id number] Discharge Discharge Disposition Patient was discharged to Home (01) Discharge Diagnoses: Nohemy Barba NP May 11, 2017 12:37
--- NOTE | 2017-05-12 02:00 | Discharge Summary 2 SIG ---
DATE OF ADMISSION: 05/05/2017 DATE OF DISCHARGE: 05/09/2017 CONSULTANTS: 1. David Ramos M.D. 2. João Leo M.D. BRIEF HOSPITAL COURSE: The patient is a 72-year-old male, who has history of end-stage renal disease, on hemodialysis, history of seizure disorder, history of IV drug use, on maintenance methadone therapy, presented to ED with reports of missed hemodialysis. He had a Anjum catheter prior to admission. Anjum catheter was discontinued. He had an AV fistula, which was created, however, had not been working. He came in for further evaluation. He denied any chest pain nor shortness of breath. Denies any nausea, vomiting, diarrhea, or chills. On evaluation at ED, vital signs were stable. Workup showed elevated troponin levels at 8 with EKG findings of peaked T-waves. Initial troponin was negative. Creatinine was 17 and BUN was 74. Hyperkalemia was treated and the patient was admitted for further management. He was seen by Dr. Leo at ED and a temporary hemodialysis catheter was placed to the right femur for emergent dialysis. Post dialysis, potassium went down to 6.7. He was also given Kayexalate. He had an echocardiogram done that showed ejection fraction of 60% to 65% with normal left ventricular size, function, and wall motion. No evidence of pericardial effusion. On 05/08/2017, he had IR placement of a right jugular temporary dialysis catheter. He was given hemodialysis. Potassium went down further to 4.2. He was advised to see a vascular surgeon as outpatient. A temporary dialysis catheter from the right jugular was removed and the right IJ hemodialysis line was functional and ready to use and can be used until the graft can be salvaged or a new fistula created. He was advised to follow up with vascular surgery as outpatient. FINAL DIAGNOSES: 1. End-stage renal disease, on hemodialysis. 2. Clotted renal dialysis AV graft. 3. Hyperkalemia. 4. Anemia. 5. Missed hemodialysis. 6. Dry blister with scab on the left arm present on admission. 7. Hypotension. 8. Methadone maintenance therapy patient. DISPOSITION: The patient was discharged home. DISCHARGE MEDICATIONS: Refer to medication list. Jaymie Falcon M.D. I have been assigned to dictate discharge summary on this account and I was not involved in the patient's management. Nohemy Barba N.P. DR: CARISSA JOB#: [id number] CC: JANEL
--- NOTE | 2017-05-17 16:54 | Cardiology Report ---
APPROVED REPORT EKG Measurement Heart [id number] Normal sinus rhythm Cannot rule out Anterior infarct, age undetermined Abnormal ECG
== END 2017-05-09 14:40 | disposition home or self-care (01) | DRG 314 ==
LOC: EMR 16:29 → 2W 18:15 → EDBEDREQ 18:23 → EDBEDREQSVC 19:16 → EDBEDREQ 19:16 → 4W 05-06 20:33
PROC: 06HM33Z Insertion of Infusion Device into Right Femoral Vein, Percutaneous Approach (ICD-10-PCS; principal; 2017-05-05)
PROC: 05HM33Z Insertion of Infusion Device into Right Internal Jugular Vein, Percutaneous Approach (ICD-10-PCS; 2017-05-08)
DX: T82.868A Thrombosis due to vascular prosthetic devices, implants and grafts, initial encounter (principal); N18.6 End stage renal disease; I95.9 Hypotension, unspecified; E87.5 Hyperkalemia; F11.20 Opioid dependence, uncomplicated; D64.9 Anemia, unspecified; Y83.2 Surgical operation with anastomosis, bypass or graft as the cause of abnormal reaction of the patient, or of later complication, without mention of misadventure at the time of the procedure; Z99.2 Dependence on renal dialysis; Z88.0 Allergy status to penicillin
CPT/HCPCS: 36415; 36569; 76937; 80048; 80053; 80069; 82962; 82977; 83036; 83735; 83880; 84100; 84443; 84484; 84550; 85025; 85610; 85730; 86140; 87081; 93005; 93306; 94640; 94664; 99291; J2405